=== PATIENT | male | born 2000 | race Caucasian/White ===

== ENCOUNTER 2023-12-21 12:31 | Emergency (ER) | payer OTHER ==
[~2023-12-21] VITALS: Ht 182.9 cm; Wt 64.5 kg
[2023-12-21 14:32] VITALS: BP 107/66; PULSE 62; RESP 17; TEMP 98.8; O2SAT 100
[2023-12-21] MEDS ORDERED: BUPR1FIL3 SL (14:59)
[2023-12-21] MEDS: buprenorphine/naloxone 8MG-2MG SUBlingual film SL STA (15:41)
== END 2023-12-21 15:59 | disposition home or self-care (01) ==
LOC: ER 12:32
DX: F11.13 Opioid abuse with withdrawal (principal); R45.1 Restlessness and agitation; R11.2 Nausea with vomiting, unspecified; Z79.899 Other long term (current) drug therapy
CPT/HCPCS: 99283

== ENCOUNTER 2025-03-17 13:21 | Emergency (ER) | payer MEDICAID, OTHER ==
[~2025-03-17] VITALS: Ht 185.4 cm; Wt 64.9 kg
[~2025-03-17 13:21] MED LIST: BUPR1FIL3 SL
[2025-03-17 13:58] VITALS: BP 110/71; PULSE 60; RESP 18; TEMP 97.9; O2SAT 98
--- NOTE | 2025-03-17 14:03 | Physician Documentation ---
History of Present Illness ~ Chief Complaint: Medical Clearance Stated Complaint: MED CLEARANCE Time Seen by MD: 14:00 HPI This is a 24-year-old male with a history of opioid abuse who presents requesting medical clearance to [facility], patient reports last use of fentanyl was four days prior and he is currently on methadone for medication assisted therapy for opioid abuse. Patient reports no physical concerns or symptoms. Tetanus within 5 years?: No Medication Reconciliation Allergies: Coded Allergies: No Known Allergies (Unverified , 12/21/23) Scheduled Buprenorphine Hcl/Naloxone Hcl (Suboxone 8 Mg-2 Mg Sl Film), 1 STRIP SL BID Past Medical History Past Medical History: No Pertinent History Drug Use: other (Fentanyl) Review of Systems ROS As stated above in the HPI, otherwise all systems are reviewed and negative. Physical Exam Vital Signs: Temperature: 97.9, Source: Oral, Heart Rate: 60, Respiratory Rate: 18, BP: 110/71, Pulse Oximetry: 98, Weight: 64.900 Physical Exam VITALS: Reviewed and as above. GENERAL: Alert, nontoxic appearing, no apparent distress. HEENT: PERRLA EOMI RESPIRATORY: No increased work of breathing, no respiratory distress, speaking in full clear sentences, clear lung sounds in all smith CHEST: Nontender to palpation CV: Regular rate and rhythm no murmur BACK: No CVA tenderness, no central spinal tenderness GI: Soft, nondistended, nontender, no rebound, no guarding MUSCULOSKELETAL: No deformities SKIN: Warm and dry NEURO: GCS 15 PSYCH: Stating No HI or SI Progress Results/Orders Results/Orders Vital Signs 03/17/25 13:58 Temp 97.9 Pulse 60 Resp 18 B/P (MAP) 110/71 Pulse Ox 98 Medical Decision Making Findings This 24-year-old male with history of opioid abuse presented requesting medical clearance to enter detox program, patient did report recent fentanyl use though it is reassuring he has on methadone for medication assisted therapy therefore low risk for opioid withdrawal symptoms, patient reported no other physical symptoms or concerns and did not report other drug use including no alcohol use. Given patient is otherwise well with benign physical exam and of low risk for alcohol withdrawal he is medically cleared to enter has detox program. Patient provided home care instructions, follow up instructions, and return to care precautions which he verbalized understanding of. Differential Dx:Considerations: Include: Intoxication-Alcohol, Intoxication- Other drug, Personality disorder, Substance abuse disorder, Alcohol withdrawl syndrom Departure Time of Disposition: 14:03 Disposition: 01 HOME / SELF CARE / HOMELESS Impression: Primary Impression: General medical exam Additional Impression: History of opioid abuse Condition: Improved Discharge Instructions: Medical Screening Exam Additional Instructions: You are medically cleared to enter [facility]. Please follow up with your primary care provider or [facility] in the next few days. Please return to the emergency department for any new or worsening concerning symptoms. Referrals: NO PRIMARY CARE PROVIDER (PCP) Education Educated: Patient Educated regarding: diagnosis, treatment, prognosis, need for follow up Signature Scribe Signature: No scribe Attestation: The note accurately reflects work and decisions made by me.ROLANDO Corrigan 03/18/25 15:30 FAZAL DEE Mar 17, 2025 14:03
== END 2025-03-17 14:08 | disposition home or self-care (01) ==
LOC: ER 13:22
DX: Z00.00 Encounter for general adult medical examination without abnormal findings (principal); F11.10 Opioid abuse, uncomplicated; Z79.899 Other long term (current) drug therapy
CPT/HCPCS: 99281

== ENCOUNTER 2025-05-13 15:25 | Emergency (ER) | payer MEDICAID ==
[~2025-05-13] VITALS: Ht 185.4 cm; Wt 66.0 kg
[2025-05-13 15:37] VITALS: BP 120/79; PULSE 74; RESP 18; TEMP 97.8; O2SAT 99
--- NOTE | 2025-05-13 16:46 | Physician Documentation ---
History of Present Illness ~ Chief Complaint: Chest Pain Stated Complaint: CHEST WALL PAIN HPI This is a 24-year-old male history of IV drug use who presents with one year of chest wall pain described as itching and several days of intermittent sharp stabbing left-sided nonradiating chest pain worse when lying flat and relieved when lying in certain positions including lying on his side. Patient reports no other acute symptoms or concerns including no nausea or vomiting or no shortness of breath. Tetanus within 5 Years?: No Allergies: Coded Allergies: No Known Allergies (Unverified , 05/13/25) Active Prescriptions See Medication Reconciliation Form. Medication Reconciliation Scheduled Buprenorphine Hcl/Naloxone Hcl (Suboxone 8 Mg-2 Mg Sl Film), 1 STRIP SL BID Past Medical History Past Medical History: No Pertinent History Drug Use: other Review of Systems ROS As stated above in the HPI, otherwise all systems are reviewed and negative. Physical Exam Vital Signs: Temperature: 97.8, Source: Temporal, Heart Rate: 74, Respiratory Rate: 18, BP: 120/79, Pulse Oximetry: 99, Weight: 66.000 Physical Exam VITALS: Reviewed and as above. GENERAL: Alert, nontoxic appearing, no apparent distress. RESPIRATORY: No increased work of breathing, no respiratory distress, speaking in full clear sentences Progress Results/Orders Results/Orders Medical Decision Making Additional information obtaine: N/A Findings MSE performed in triage and patient returned to ED lobby by nursing staff to await available ED room. EKG and labs initiated. Patient is hemodynamically stable appropriate for ED lobby wait. Patient appears to have eloped from lobby. Differential Dx:Considerations: Include: Chest wall contusion, Flail chest, Myocardial contusion, Pneumothorax, Pulmonary contusion, Rib fracture, Tension pneumothorax Additional Comment Myocardial Infarction, myocarditis, pericarditis Departure Disposition: LEFT AWOL/ELOPED Impression: Primary Impression: Chest pain Qualified Codes: R07.9 - Chest pain, unspecified Referrals: NO PRIMARY CARE PROVIDER (PCP) Signature Scribe Signature: No Scribe Attestation: The note accurately reflects work and decisions made by me.ROLANDO Corrigan 05/18/25 08:43 FAZAL DEE May 13, 2025 16:46
== END 2025-05-13 19:44 | disposition left against medical advice (07) ==
LOC: ER 15:26
DX: R07.89 Other chest pain (principal); Z79.899 Other long term (current) drug therapy
CPT/HCPCS: 99282